=== PATIENT | female | born 1940 | race Caucasian/White ===

== ENCOUNTER 2019-06-14 09:54 | Day surgery (SDC) | payer OTHER | END 2019-06-14 11:23 | disposition home or self-care (01) | LOC: GIL 09:54 | DX: R19.4 Change in bowel habit (principal); K29.50 Unspecified chronic gastritis without bleeding; K64.8 Other hemorrhoids; K21.9 Gastro-esophageal reflux disease without esophagitis; I10 Essential (primary) hypertension; E11.9 Type 2 diabetes mellitus without complications | CPT/HCPCS: 43239; 82962; 88305; 88312 ==